=== PATIENT | female | born 1955 | race Caucasian/White ===

== ENCOUNTER 2016-10-07 11:35 | Emergency (ER) | payer OTHER ==
--- NOTE | 2016-10-07 11:47 | UC ---
Ear Complaint HPI - HPI Summary HPI Summary: left ear pain for 6 weeks--seen pcp who rx doxycycline but said she could not see her ear drum----pain radiating in to side of neck no fevers - History of Current Complaint Chief Complaint: UCEar Stated Complaint: EAR PAIN Time Seen by Provider: 10/07/16 11:37 Hx Obtained From: Patient ?: No Onset/Duration: Gradual Onset, Lasting Weeks - 6, Worse Since - past 3 days Severity Initially: Moderate Severity Currently: Moderate Pain Intensity: 6 Pain Scale Used: 0-10 Numeric Aggravating Factors: Nothing Alleviating Factors: Nothing Associated Signs/Symptoms: Positive: Hearing Loss - Allergies/Home Medications Allergies/Adverse Reactions: Allergies Allergy/AdvReac Type Severity Reaction Status Date / Time Morphine Allergy Nausea And Verified 07/01/16 15:20 Vomiting Prednisone Allergy Swelling Verified 07/01/16 15:20 Of Face,Lips,& Throat Sulfa Drugs Allergy See Comment Verified 07/01/16 15:20 PMH/Surg Hx/FS Hx/Imm Hx Previously Healthy: No - PVC Endocrine History Of: Reports: Thyroid Disease - 1977 CANCER OF THYROID, SURGERY , NOW ON SUPPLEMENT, Dyslipidemia Cardiovascular History Of: Denies: Cardiac Disorders Respiratory History Of: Reports: Bronchitis Denies: COPD, Asthma GI/ History Of: Reports: Gastroesophageal Reflux Psychological History Of: Denies: Anxiety, Depression Cancer History Of: Reports: Breast Cancer - Surgical History Surgical History: Yes Surgery Procedure, Year, and Place: 1959 [facility]. 1977 [facility]ROIDECTOMY [facility]. 1982 BILATERAL TUBAL LIGATION [facility]. 1994 LEFT BREAST LUMPECTOMY ([facility]ANCER) [facility]. LEFT HAND [facility]. 1999s GALLBLADDER [facility]. 2005 & 2009 RT HAND [facility]. 2000s RT FOOT [facility]. [place] [facility] [place] - Family History Known Family History: Positive: Hypertension - Social History Occupation: Retired Lives: With Family Alcohol Use: None Substance Use Type: None Smoking Status (MU): Current Every Day Smoker Type: Cigarettes Amount Used/How Often: <1/2 PPD Have You Smoked in the Last Year: Yes Cessation Counseling: Counseled 3+Min - 10 Min Review of Systems Constitutional: Negative Skin: Negative Eyes: Negative ENT: Sore Throat, Ear Ache Respiratory: Negative Cardiovascular: Negative Gastrointestinal: Negative Genitourinary: Negative Motor: Negative Neurovascular: Negative Musculoskeletal: Negative Neurological: Negative Psychological: Negative All Other Systems Reviewed And Are Negative: Yes Physical Exam Triage Information Reviewed: Yes Appearance: Well-Appearing, No Pain Distress, Well-Nourished Vital Signs Reviewed: Yes Eye Exam: Normal Eyes: Positive: Conjunctiva Clear ENT Exam: Other ENT: Positive: Normal ENT inspection, Pharynx normal, TMs normal - left ear cerumen impaction-flushed her after flush ear wnl, Trismus, Muffled/hoarse voice. Negative: Nasal congestion, Nasal drainage, Tonsillar swelling, Tonsillar exudate Neck exam: Normal Neck: Positive: Supple, Nontender, No Lymphadenopathy Respiratory Exam: Normal Respiratory: Positive: Chest non-tender, Lungs clear, Normal breath sounds, No respiratory distress, No accessory muscle use, Respiratory distress Cardiovascular Exam: Normal Cardiovascular: Positive: RRR, No Murmur, Pulses Normal, Brisk Capillary Refill Musculoskeletal Exam: Normal Musculoskeletal: Positive: Strength Intact, ROM Intact, No Edema Neurological Exam: Normal Neurological: Positive: Alert Psychological Exam: Normal Skin Exam: Normal Ear Complaint Course/Dx - Course Course Of Treatment: COricidin HBP for sinus congestion, flonase, augmentin if no improvement in 5-7 days, follow with pcp - Differential Dx/Diagnosis Differential Diagnosis/HQI/PQRI: Cerumen Impaction, Otitis Media, Pharyngitis, URI Provider Diagnoses: eustation tube dysfunction, cerumen impaction, nicotine dependant Discharge - Discharge Plan Condition: Stable Disposition: HOME Prescriptions: Amoxicillin/Clavulanate TAB* [Augmentin TAB 875*] 875 mg PO BID #20 tab Fluticasone NASAL SPRAY 50MCG* [Flonase NASAL SPRAY 50MCG*] 2 spray BOTH NARES DAILY #1 btl Patient Education Materials: How to Stop Smoking (ED), Sinusitis (ED), Cerumen Impaction (ED), Cigarette Smoking and Your Health (GEN), Eustachian Tube Dysfunction (GEN), How to Use Nasal [place] (ED) Referrals: Sharona Andrew MD [Primary Care Provider] - If Needed Additional Instructions: TRIPLE GOOD LUCK WITH QUITTING SMOKING YOU GOT THIS!!!!!!:) Coriciden HBP as a decongestant instead of Sudafed to help prevent heart racing and increase blood pressure
[2016-10-07 11:48] VITALS: BP 135/71
== END 2016-10-07 12:28 | disposition home or self-care (01) ==
LOC: UCEAST 11:35
DX: H69.92 Unspecified Eustachian tube disorder, left ear (principal); H61.22 Impacted cerumen, left ear; F17.210 Nicotine dependence, cigarettes, uncomplicated; K21.9 Gastro-esophageal reflux disease without esophagitis; Z88.2 Allergy status to sulfonamides; Z88.5 Allergy status to narcotic agent; Z88.8 Allergy status to other drugs, medicaments and biological substances
CPT/HCPCS: 99213; G0463

== ENCOUNTER 2016-10-29 09:17 | Emergency (ER) | payer OTHER ==
[2016-10-29 10:39] VITALS: BP 125/55
--- NOTE | 2016-10-29 11:44 | UC ---
Ear Complaint HPI - HPI Summary HPI Summary: return of left ear pain hurts worse when she swallows, coughs, no fevers - History of Current Complaint Chief Complaint: UCEar Stated Complaint: EAR PAIN Time Seen by Provider: 10/29/16 11:02 Hx Obtained From: Patient ?: No Onset/Duration: Gradual Onset, Lasting Weeks - 5, Worse Since - returned in the past 4 days Severity Initially: Moderate Severity Currently: Mild Pain Intensity: 5 Pain Scale Used: 0-10 Numeric Aggravating Factors: Nothing Alleviating Factors: Other (Noted In Comments) - ibuprofen 800mg - Allergies/Home Medications Allergies/Adverse Reactions: Allergies Allergy/AdvReac Type Severity Reaction Status Date / Time Morphine Allergy Nausea And Verified 07/01/16 15:20 Vomiting Prednisone Allergy Swelling Verified 07/01/16 15:20 Of Face,Lips,& Throat Sulfa Drugs Allergy See Comment Verified 07/01/16 15:20 Home Medications: Home Medications Ibuprofen TAB* [Motrin TAB* 800 MG] 800 mg PO Q6H 10/29/16 [History Confirmed ] PMH/Surg Hx/FS Hx/Imm Hx Previously Healthy: No Endocrine History Of: Reports: Thyroid Disease - 1977 CANCER OF THYROID, SURGERY , NOW ON SUPPLEMENT, Dyslipidemia Cardiovascular History Of: Denies: Cardiac Disorders Respiratory History Of: Reports: Bronchitis Denies: COPD, Asthma GI/ History Of: Reports: Gastroesophageal Reflux Psychological History Of: Denies: Anxiety, Depression Cancer History Of: Reports: Breast Cancer - Surgical History Surgical History: Yes Surgery Procedure, Year, and Place: 1959 [facility]. 1977 [facility]OMY [facility]. 1982 BILATERAL TUBAL LIGATION [facility]. 1994 LEFT BREAST L[facility]OMY ([facility]ANC[facility]) [facility]. LEFT [facility]. 1999s [facility]. 2006 & 2009 RT HAND [facility]. 2000s RT FOOT [facility]. 2010 CARDIAC CATH [facility] [place] - Family History Known Family History: Positive: Hypertension - Social History Occupation: Retired Lives: With Family Alcohol Use: None Substance Use Type: None Smoking Status (MU): Current Every Day Smoker Type: Cigarettes Amount Used/How Often: <1/2 PPD Have You Smoked in the Last Year: Yes Cessation Counseling: Patient Advised to Stop Review of Systems Constitutional: Negative Skin: Negative Eyes: Negative ENT: Sore Throat - with cough and swallow, Ear Ache - left Respiratory: Negative Cardiovascular: Negative Gastrointestinal: Negative Genitourinary: Negative Motor: Negative Neurovascular: Negative Musculoskeletal: Negative Neurological: Negative Psychological: Negative All Other Systems Reviewed And Are Negative: Yes Physical Exam Triage Information Reviewed: Yes Appearance: Well-Appearing, No Pain Distress, Well-Nourished Vital Signs: Initial Vital Signs Temp 97.8 F 10/29/16 10:34 Pulse 62 10/29/16 10:34 Resp 18 10/29/16 10:34 BP 125/55 10/29/16 10:34 Pulse Ox 100 10/29/16 10:34 Vital Signs Reviewed: Yes Eye Exam: Normal Eyes: Positive: Conjunctiva Clear ENT Exam: Normal ENT: Positive: Normal ENT inspection, Hearing grossly normal, Pharynx normal, Nasal drainage, TMs normal. Negative: Nasal congestion, Tonsillar swelling, Tonsillar exudate, Trismus, Muffled/hoarse voice Dental Exam: Normal Neck exam: Normal Neck: Positive: Supple, Nontender, No Lymphadenopathy Respiratory Exam: Normal Respiratory: Positive: Chest non-tender, Lungs clear, Normal breath sounds, No respiratory distress, No accessory muscle use Cardiovascular Exam: Normal Cardiovascular: Positive: RRR, No Murmur, Pulses Normal, Brisk Capillary Refill Musculoskeletal Exam: Normal Musculoskeletal: Positive: Strength Intact, ROM Intact, No Edema Neurological Exam: Normal Neurological: Positive: Alert, Muscle Tone Normal Psychological Exam: Normal Skin Exam: Normal Ear Complaint Course/Dx - Course Course Of Treatment: coricidin HBP, Flonase, ibuprofen for pain Follow on Sunday 11/05 at [address] Bruno - Differential Dx/Diagnosis Differential Diagnosis/HQI/PQRI: Cerumen Impaction, Otitis Externa, Otitis Media , URI Provider Diagnoses: URI, Eustation tube dysfunction Discharge - Discharge Plan Condition: Stable Disposition: HOME Patient Education Materials: Serous Otitis Media (ED), Eustachian Tube Dysfunction (GEN) Referrals: Winston Simpson MD [Medical Doctor] - 11/05/16 10:00 am Sharona Andrew MD [Primary Care Provider] - Additional Instructions: Continue Flonase and Coricidin HBP
== END 2016-10-29 11:43 | disposition home or self-care (01) ==
LOC: UCEAST 09:17
DX: J06.9 Acute upper respiratory infection, unspecified (principal); H69.92 Unspecified Eustachian tube disorder, left ear; Z88.5 Allergy status to narcotic agent; Z88.2 Allergy status to sulfonamides; Z88.8 Allergy status to other drugs, medicaments and biological substances; F17.210 Nicotine dependence, cigarettes, uncomplicated
CPT/HCPCS: 99211; G0463

== ENCOUNTER 2019-03-17 13:58 | Emergency (ER) | payer OTHER ==
--- NOTE | 2019-03-17 14:01 | UC ---
Complaint Female HPI - HPI Summary HPI Summary: 63 yo female presents with urinary burning, bladder pressure, and scant hematuria since last night. She tells me that she gets a UTI about once a year and this feels the same. She denies fever, chills, abdominal pain, n/v, flank pain. - History Of Current Complaint Stated Complaint: URINE ISSUES Time Seen by Provider: 03/17/19 14:01 Hx Obtained From: Patient Onset/Duration: Sudden Onset Severity Initially: Mild Severity Currently: Mild Pain Intensity: 3 Pain Scale Used: 0-10 Numeric - Allergies/Home Medications Allergies/Adverse Reactions: Allergies Allergy/AdvReac Type Severity Reaction Status Date / Time morphine Allergy Nausea And Verified 03/17/19 14:11 Vomiting prednisone Allergy Swelling Verified 03/17/19 14:11 Of Face,Lips,& Throat Sulfa (Sulfonamide Allergy See Comment Verified 03/17/19 14:11 Antibiotics) Home Medications: Home Medications Metoprolol Tartrate TAB* [Lopressor TAB*] 75 mg PO DAILY 03/17/19 [History Confirmed 03/17/19] Rosuvastatin Calcium [Crestor] 20 mg PO DAILY 03/17/19 [History Confirmed ] PMH/Surg Hx/FS Hx/Imm Hx - Additional Past Medical History Additional PMH: BRCA Endocrine History: Hypothyroidism, Dyslipidemia Cardiovascular History: Hypertension GI/ History: Gastroesophageal Reflux - Surgical History Surgical History: Yes Surgery Procedure, Year, and Place: 1959 [facility]. 1977 [facility]IDECTOMY [facility]. 1982 BILATERAL TUBAL LIGATION [facility]. 1994 LEFT BREAST LUM[facility]OMY ([facility]ANC[facility]) [facility]. LEFT HAND [facility]. 2006 RIGHT FOOT PLANTAR FASCIITIS SX. 2000s GALLBLADDER [facility]. 2005 & 2010 RT HAND [facility]. 2000s RT FOOT [facility]. 2010 CARDIAC CATH [facility] [place] - Family History Known Family History: Positive: Hypertension - Social History Lives: With Family Alcohol Use: None Substance Use Type: None Smoking Status (MU): Current Every Day Smoker Type: Cigarettes Amount Used/How Often: <1/2 PPD Have You Smoked in the Last Year: Yes Review of Systems All Other Systems Reviewed And Are Negative: Yes Constitutional: Positive: Negative Skin: Positive: Negative Respiratory: Positive: Negative Cardiovascular: Positive: Negative Genitourinary: Positive: Hematuria, Frequency, Urgency Neurological: Positive: Negative Psychological: Positive: Negative Physical Exam - Summary Physical Exam Summary: GENERAL: NAD. WDWN. No pain distress. SKIN: No rashes, sores, lesions, or open wounds. NECK: Supple. Nontender. No lymphadenopathy. CHEST: CTAB. No r/r/w. No accessory muscle use. Breathing comfortably and in no distress. CV: RRR. Without m/r/g. Pulses intact. Cap refill <2seconds ABDOMEN: Soft. NTTP. No distention or guarding. No CVA tenderness. Bowel sounds present NEURO: Alert. PSYCH: Age appropriate behavior. Triage Information Reviewed: Yes Vital Signs: Vital Signs: Temp Pulse Resp BP Pulse Ox 98.5 F 63 16 146/66 97 03/17/19 14:04 03/17/19 14:04 03/17/19 14:04 03/17/19 14:04 03/17/19 14:04 Complaint Female Dx - Course Course Of Treatment: UA with trace blood and trace leuks. Will treat with Keflex and send her urine for culture. - Differential Dx/Diagnosis Provider Diagnosis: UTI (urinary tract infection) Discharge - Sign-Out/Discharge Documenting (check all that apply): Patient Departure All imaging exams completed and their final reports reviewed: No Studies - Discharge Plan Condition: Stable Disposition: HOME Prescriptions: Cephalexin CAP* [Keflex CAP*] 500 mg PO BID #10 cap Patient Education Materials: Urinary Tract Infection in Women (DC) Referrals: Sharnoa Andrew MD [Primary Care Provider] - Additional Instructions: If you develop a fever, shortness of breath, chest pain, new or worsening symptoms - please call your PCP or go to the ED immediately. Your blood pressure was high at todays visit. Please see your primary provider within 4 weeks for recheck and re-evaluation. - Billing Disposition and Condition Condition: STABLE Disposition: Home
[2019-03-17 14:09] VITALS: BP 146/66
== END 2019-03-17 14:42 | disposition home or self-care (01) ==
LOC: UCEAST 13:58
DX: N39.0 Urinary tract infection, site not specified (principal); E03.9 Hypothyroidism, unspecified; E78.5 Hyperlipidemia, unspecified; I10 Essential (primary) hypertension; K21.9 Gastro-esophageal reflux disease without esophagitis; F17.210 Nicotine dependence, cigarettes, uncomplicated; Z88.5 Allergy status to narcotic agent; Z88.2 Allergy status to sulfonamides
CPT/HCPCS: 81003; 87086; 99212; G0463

== ENCOUNTER 2019-10-04 13:48 | Emergency (ER) | payer OTHER ==
--- OUTSIDE RECORDS SUMMARY | 2019-10-04 14:06 | XMS REPORT | Continuity of Care Document ---
:1955 External Reference #:[id number] Author Name MANNY West (transmitted by agent of provider Lory Mathias) Address [address] [facility] [place] [address] Care Team Providers Name Role Phone Sharona Andrew M.D. 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 Problems Active Problems Provider Date Varicose veins of lower extremity Chadd Darden Onset: 11/13/2018 Body mass index 25-29 - overweight Chadd Darden Onset: 11/13/2018 Social History Type Date Description Comments Sex Unknown ETOH Use Denies alcohol use Tobacco Use Start: Unknown Heavy tobacco smoker (more than 10 cigarettes/day) Recreational Drug Use Denies Drug Use Smoking Status Reviewed: 12/30/18 Heavy tobacco smoker (more than 10 cigarettes/day) Allergies, Adverse Reactions, Alerts Active Allergies Reaction Severity Comments Date Prednisone Flushing 11/13/2018 Sulfa Antibiotics 11/13/2018 Morphine vomiting 11/13/2018 Medications Active Medications SIG Qnty Indications Ordering Provider Date Cephalexin take one capsule 15caps Nichelle Terrazas, 02/27/2019 500mg three times daily M.D. Capsules Compression wear as directed 1Pair Chadd Darden 01/08/2019 Stockings Wear Daily For 6 Months 20-30MMHG Thigh High Misc Prilosec by mouth every Unknown 10mg day Capsules Metoprolol Succinate Unknown ER 50mg Tablets ER 24HR Synthroid po qd Unknown 125mcg Tablets Crestor 20 mg po qd Unknown 5mg Tablets Coq-10 po qd Unknown 150mg Capsules Aspirin 1 by mouth every Unknown 81mg Tablets day DR History Medications Gabapentin take 1 tablet by 1tabs I83.892 Chadd Darden 03/19/2019 - 600mg mouth 1 hour 03/19/2019 Tablets prior to your procedure arrival time Immunizations CPT Code Status Date Vaccine Lot # [id number] Given 08/04/2019 Influenza Vaccine [id number] Given 06/07/2018 Pneumococcal Vaccine 46479 Given 06/07/2018 Influenza Vaccine [id number] Vital Signs Date Vital Result Comment 09/08/2019 2:03pm Height 62 inches 5'2" Weight 150.00 lb BP Systolic 120 mmHg BP Diastolic 54 mmHg BMI (Body Mass Index) 27.4 kg/m2 Heart Rate 69 /min 08/20/2019 2:36pm Height 62 inches 5'2" Weight 150.00 lb BP Systolic 128 mmHg BP Diastolic 68 mmHg BMI (Body Mass Index) 27.4 kg/m2 Heart Rate 66 /min Respiratory Rate 18 /min Results Description No Information Available Procedures Date Code Description Status 09/08/2019 87154 Injection Sclerosing Solution Multiple Veins Same Leg Completed 08/20/2019 30870 Injection Sclerosing Solution Multiple Veins Same Leg Completed 08/04/2019 93217 Injection Sclerosing Solution Multiple Veins Same Leg Completed 07/21/2019 88773 Injection Sclerosing Solution Multiple Veins Same Leg Completed 07/02/2019 77649 Duplex Scan Extremity Veins, Unilateral Or Limited Study Completed 06/23/2019 15446 Injection Sclerosing Solution Multiple Veins Same Leg Completed 06/09/2019 85848 Duplex Scan Extremity Veins, Unilateral Or Limited Study Completed 06/01/2019 45318 Therapeutic, Prophylactic Or Diagnostic Injection Subq/Im Completed 06/01/2019 07388 Endovenus Therapy Radiofreq Completed 03/19/2019 05080 Duplex Scan Extremity Veins Complete Bilateral Completed Medical Devices Description No Information Available Encounters Type Date Location Provider Dx Diagnosis Office Visit 06/09/2019 [facility], I83.891 Varicose veins of r 2:00p PA low extrem with other complications Z68.28 Body mass index (BMI) 28.0-28.9, adult Office Visit 03/19/2019 2:45p [facility], I83.892 Varicose veins of l Chadd low extrem with other complications I83.891 Varicose veins of r low extrem with other complications Z68.28 Body mass index (BMI) 28.0-28.9, adult Assessments Date Code Description Provider 09/08/2019 I83.892 Varicose veins of left lower extremity with MANNY West other complications 09/08/2019 Z68.27 Body mass index (BMI) 27.0-27.9, adult MANNY West 08/20/2019 I83.891 Varicose veins of right lower extremity with MANNY West other complicat 08/20/2019 Z68.27 Body mass index (BMI) 27.0-27.9, adult MANNY West 08/04/2019 I83.892 Varicose veins of left lower extremity with MANNY West other complications 08/04/2019 Z68.28 Body mass index (BMI) 28.0-28.9, adult MANNY West 07/21/2019 I83.891 Varicose veins of right lower extremity with MANNY West other complicat 07/21/2019 Z68.28 Body mass index (BMI) 28.0-28.9, adult MANNY West 07/02/2019 I83.891 Varicose veins of right lower extremity with MANNY West other complicat 07/02/2019 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 MANNY West 07/02/2019 Z68.28 Body mass index (BMI) 28.0-28.9, adult MANNY West 06/23/2019 I83.892 Varicose veins of left lower extremity with MANNY West other complicati 06/23/2019 Z68.28 Body mass index (BMI) 28.0-28.9, adult MANNY West 06/09/2019 I83.891 Varicose veins of right lower extremity with MANNY West other complicat 06/09/2019 Z68.28 Body mass index (BMI) 28.0-28.9, adult MANNY West 06/01/2019 I83.891 Varicose veins of right lower extremity with Chadd Darden other complicat 03/19/2019 I83.892 Varicose veins of left lower extremity with Chadd Darden other complicati 03/19/2019 I83.891 Varicose veins of right lower extremity with Chadd Darden other complicat 03/19/2019 Z68.28 Body mass index (BMI) 28.0-28.9, adult Chadd Darden Plan of Treatment Future Appointment(s):12/17/2019 2:30 pm - [facility] at [facility] Zxzbgq8111/19/2019 2:30 pm - [facility] at [facility] Aebnxu1610/22/2019 2: 30 pm - [facility] at Vein Gxezou1609/22/2019 2:30 pm - [facility] Functional Status Description No Information Available Mental Status Description No Information Available Referrals Refer to Reason for Referral Status Appt Date Chadd Darden M.D. RIGHT LEG SURGERY Created [address] [facility] [place] [address] [place] [address] [phone]
--- OUTSIDE RECORDS SUMMARY | 2019-10-04 14:06 | XMS REPORT | Continuity of Care Document ---
:1955 External Reference #:[id number] Author Name MANNY West (transmitted by agent of provider Marita Philip) Address [address] [facility] [place] [address] Care Team Providers Name Role Phone Sharona Andrew M.D. 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 Provider Date Varicose veins [...] CPT Code Status Date Vaccine Lot # [id number] Given 08/04/2019 Influenza Vaccine [id number] 90842 Given 06/07/2018 Pneumococcal Vaccine 90446 Given 06/07/2018 Influenza Vaccine [id number] Vital Signs Date Vital Result Comment 08/20/2019 2:36pm Height 62 inches 5'2" Weight 150.00 lb BP Systolic 128 mmHg BP Diastolic 68 mmHg BMI (Body Mass Index) 27.4 kg/m2 Heart Rate 66 /min Respiratory Rate 18 /min 08/04/2019 2:18pm Height 62 inches 5'2" Weight 156.00 lb BP Systolic 121 mmHg BP Diastolic 60 mmHg BMI (Body Mass Index) 28.5 kg/m2 Heart Rate 67 /min Respiratory Rate 18 /min Results Description No Information Available Procedures Date Code Description Status 08/20/2019 99193 Injection Sclerosing Solution Multiple Veins Same Leg Completed 08/04/2019 61822 Injection Sclerosing Solution Multiple Veins Same Leg Completed 08/04/2019 94177 Inject Tendon/Ligament/Cyst Completed 07/21/2019 82097 Injection Sclerosing Solution Multiple Veins Same Leg Completed 07/02/2019 60710 Duplex Scan Extremity Veins, Unilateral Or Limited Study Completed 06/23/2019 04984 Injection Sclerosing Solution Multiple Veins Same Leg Completed 06/09/2019 23423 Duplex Scan Extremity Veins, Unilateral Or Limited Study Completed 06/01/2019 09903 Therapeutic, Prophylactic Or Diagnostic Injection Subq/Im Completed 06/01/2019 77825 Endovenus Therapy Radiofreq Completed 03/19/2019 15980 Duplex Scan Extremity Veins Complete Bilateral Completed 02/27/2019 41565 Duplex Scan Extremity Veins, Unilateral Or Limited Study Completed Medical Devices Description No Information Available Encounters Type Date Location Provider Dx Diagnosis Office Visit 06/09/2019 [facility] Lopez I83.891 Varicose veins of r 2:00p PA low extrem with other complications Z68.28 Body mass index (BMI) 28.0-28.9, adult Office Visit 03/19/2019 2:45p [facility] I83.892 Varicose veins of l Chadd low extrem with other complications I83.891 Varicose veins of r low extrem with other complications Z68.28 Body mass index (BMI) 28.0-28.9, adult Assessments Date Code Description Provider 08/20/2019 I83.891 Varicose veins of right lower [...] MANNY West other complicat 07/02/2019 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 MANNY West [...] Varicose veins of right lower extremity with Darden, Chadd other complicat 03/19/2019 I83.892 Varicose veins of left lower extremity with Darden, Chadd other complicati 03/19/2019 I83.891 Varicose veins of right lower extremity with Darden, Chadd other complicat 03/19/2019 Z68.28 Body mass index (BMI) 28.0-28.9, adult Chadd Darden 03/03/2019 I83.892 Varicose veins of left lower extremity with Beverley CallejasSOHAIL other complicati 03/03/2019 Z68.28 Body mass index (BMI) 28.0-28.9, adult Beverley Júnior, SOHAIL 02/27/2019 I83.892 Varicose veins of left lower extremity with Nichelle Terrazas M.D. other complicati 02/27/2019 Z68.28 Body mass index (BMI) 28.0-28.9, adult Nichelle Terrazas M.D. Plan of Treatment Future Appointment(s):09/08/2019 2:00 pm - [facility] Functional Status Description No Information Available Mental Status Description No Information Available Referrals Refer to Dr Reason for Referral Status Appt Date Chadd Darden M.D. RIGHT LEG SURGERY Created [address] [place] [address] [place] [address] [phone]
--- OUTSIDE RECORDS SUMMARY | 2019-10-04 14:06 | XMS REPORT | Continuity of Care Document ---
:1955 External Reference #:[id number] Author Name MANNY West (transmitted by agent of provider Norma Mason) Address [address] [facility] [place] [address] Care Team Providers Name Role Phone Sharona Andrew M.D. 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 Problems Active Problems Provider Date Varicose veins [...] Medications SIG Qnty Indications Ordering Provider Date Compression Stockings wear as directed 1Pair Chadd Darden 01/08/2019 Wear Daily For 6 Months 20-30MMHG Thigh High Misc Prilosec by mouth every Unknown 10mg Capsules day Metoprolol Succinate Unknown ER 50mg Tablets ER 24HR Synthroid po qd Unknown 125mcg Tablets Crestor 20 mg po qd Unknown 5mg Tablets Coq-10 po qd Unknown 150mg Capsules Aspirin 1 by mouth every Unknown 81mg Tablets DR day Immunizations CPT Code Status Date Vaccine Lot # [id number] Given 08/04/2019 Influenza Vaccine [id number] Given 06/07/2018 Pneumococcal Vaccine 09260 Given 06/07/2018 Influenza Vaccine [id number] Vital Signs Date Vital Result Comment 09/22/2019 2:43pm Height 62 inches 5'2" Weight 150.00 lb BP Systolic 120 mmHg BP Diastolic 61 mmHg BMI (Body Mass Index) 27.4 kg/m2 Heart Rate 71 /min Respiratory Rate 18 /min 09/08/2019 2:03pm Height 62 inches 5'2" Weight 150.00 lb BP Systolic 120 mmHg BP Diastolic 54 mmHg BMI (Body Mass Index) 27.4 kg/m2 Heart Rate 69 /min Results Description No Information Available Procedures Date Code Description Status 09/08/2019 17058 Injection Sclerosing Solution Multiple Veins Same Leg Completed 08/20/2019 43763 Injection Sclerosing Solution Multiple Veins Same Leg Completed 08/04/2019 57220 Injection Sclerosing Solution Multiple Veins Same Leg Completed 07/21/2019 37717 Injection Sclerosing Solution Multiple Veins Same Leg Completed 07/02/2019 28223 Duplex Scan Extremity Veins, Unilateral Or Limited Study Completed 06/23/2019 85515 Injection Sclerosing Solution Multiple Veins Same Leg Completed 06/09/2019 40387 Duplex Scan Extremity Veins, Unilateral Or Limited Study Completed 06/01/2019 84759 Therapeutic, Prophylactic Or Diagnostic Injection Subq/Im Completed 06/01/2019 02959 Endovenus Therapy Radiofreq Completed Medical Devices Description No Information Available Encounters Type Date Location Provider Dx Diagnosis Office Visit 06/09/2019 [facility], I83.891 Varicose veins of r 2:00p PA low extrem with other complications Z68.28 Body mass index (BMI) 28.0-28.9, adult Assessments Date Code Description Provider 09/22/2019 Z68.27 Body mass index (BMI) 27.0-27.9, adult MANNY West 09/08/2019 I83.892 Varicose veins of left lower [...] with MANNY West other complicat 07/02/2019 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 RIGHT LEG SURGERY Created [address] [facility] [place] [address] [place] [address] [phone]
--- OUTSIDE RECORDS SUMMARY | 2019-10-04 14:06 | XMS REPORT | Continuity of Care Document ---
:1955 External Reference #:[id number] Author Name MANNY West Address [address] [facility] [place] [address] Care Team Providers Name Role Phone Sharona Andrew M.D. 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 Problems Provider Date Varicose veins [...] by mouth every Unknown 10mg day Capsules DR Metoprolol Succinate Unknown ER 50mg Tablets ER [...] CPT Code Status Date Vaccine Lot # [id number] Given 08/04/2019 Influenza Vaccine [id number] Given 06/07/2018 Pneumococcal Vaccine 42785 Given 06/07/2018 Influenza Vaccine [id number] Vital Signs Date Vital Result Comment 09/08/2019 [...] Available Procedures Date Code Description Status 09/08/2019 13706 Injection Sclerosing Solution Multiple Veins Same Leg Completed 08/20/2019 94983 Injection Sclerosing Solution Multiple Veins Same Leg Completed 08/04/2019 99551 Injection Sclerosing Solution Multiple Veins Same Leg Completed 07/21/2019 95403 Injection Sclerosing Solution Multiple Veins Same Leg Completed 07/02/2019 00725 Duplex Scan Extremity Veins, Unilateral Or Limited Study Completed 06/23/2019 68031 Injection Sclerosing Solution Multiple Veins Same Leg Completed 06/09/2019 78069 Duplex Scan Extremity Veins, Unilateral Or Limited Study Completed 06/01/2019 35951 Therapeutic, Prophylactic Or Diagnostic Injection Subq/Im Completed 06/01/2019 06781 Endovenus Therapy Radiofreq Completed 03/19/2019 40532 Duplex Scan Extremity Veins Complete Bilateral Completed [...] with MANNY West other complicat 07/02/2019 Z79.82 prison (current) use of aspirin MANNY West 07/02/2019 [...] adult Chadd Darden Plan of Treatment Future Appointment(s):12/03/2019 2:00 pm - MANNY West at Breast Qpwqfz8511/05/2019 2:00 pm - MANNY West at Breast Hazbqf3412/17/2019 2: 30 pm - MANNY West at Breast Frgnrd0511/19/2019 2:30 pm - MANNY West at Breast Miysrr1910/22/2019 2:30 pm - MANNY West at Vein Ddzusr3009/22/2019 2:30 pm - MANNY [facility] at [facility] Center Functional Status Description No Information Available Mental Status Description No Information Available Referrals Refer to Dr Reason for Referral Status Appt Date Chadd Darden M.D. RIGHT LEG SURGERY Created [address] [facility] [place] [address] [place] [address] [phone]
[2019-10-04 14:18] VITALS: BP 141/56
--- NOTE | 2019-10-04 14:45 | UC ---
Throat Pain/Nasal Esteban HPI - HPI Summary HPI Summary: 2 days of sinus congestion, [place]. nothing makes it better/worse. denies fever, fatigue, or muscle aches. able to drink fluids normally. - History of Current Complaint Chief Complaint: UCGeneralIllness Stated Complaint: SORE THROAT Time Seen by Provider: 10/04/19 14:10 Hx Obtained From: Patient Pain Intensity: 6 Pain Scale Used: 0-10 Numeric - Allergies/Home Medications Allergies/Adverse Reactions: Allergies Allergy/AdvReac Type Severity Reaction Status Date / Time morphine Allergy Nausea And Verified 10/04/19 14:18 Vomiting prednisone Allergy Swelling Verified 10/04/19 14:18 Of Face,Lips,& Throat Sulfa (Sulfonamide Allergy See Comment Verified 10/04/19 14:18 Antibiotics) PMH/Surg Hx/FS Hx/Imm Hx Previously Healthy: Yes Endocrine History: Thyroid Disease Cardiovascular History: Hypertension - Surgical History Surgical History: Yes Surgery Procedure, Year, and Place: 1959 APPENDECTOMY [facility]. 1977 THROIDECTOMY [facility]. 1982 BILATERAL TUBAL LIGATION [facility]. 1994 LEFT BREAST LUMPECTOMY (CANCER) [facility]. LEFT HAND [facility]. 2005 RIGHT FOOT PLANTAR FASCIITIS [facility]. 2000s GALLBLADDER [facility]. 2006 & 2010 RT HAND [facility]. 2000s RT FOOT [facility]. 2009 CARDIAC CATH [facility] - Family History Known Family History: Positive: Hypertension - Social History Alcohol Use: None Substance Use Type: None Smoking Status (MU): Current Every Day Smoker Type: Cigarettes Amount Used/How Often: <1/2 PPD Have You Smoked in the Last Year: Yes Review of Systems All Other Systems Reviewed And Are Negative: Yes Constitutional: Negative: Fever, Fatigue Skin: Negative: Rash ENT: Positive: Sore Throat, Sinus Congestion, Sinus Pain/Tenderness Respiratory: Negative: Cough Musculoskeletal: Negative: Myalgia Neurological: Negative: Headache Physical Exam Triage Information Reviewed: Yes Appearance: Well-Appearing Vital Signs: Initial Vital Signs Temp 98.2 F 10/04/19 14:14 Pulse 75 10/04/19 14:14 Resp 18 10/04/19 14:14 BP 141/56 10/04/19 14:14 Pulse Ox 98 10/04/19 14:14 Vital Signs Reviewed: Yes Eyes: Positive: Conjunctiva Clear ENT: Positive: Pharynx normal, TMs normal, Uvula midline. Negative: Sinus tenderness Neck: Positive: Supple, Nontender, No Lymphadenopathy Respiratory Exam: Normal Cardiovascular Exam: Normal Neurological: Positive: Alert Skin: Negative: Rashes Throat Pain/Nasal Course/Dx - Course Course Of Treatment: Sinus congestion, acute assoc w/ [place]. viral etiology. self limiting. vitals good. rapid strep neg. advised to icnrease fluids and rest. - Differential Dx/Diagnosis Differential Diagnosis/HQI/PQRI: Sinusitis, Tonsillitis, Other Provider Diagnosis: Viral sinusitis Discharge ED - Sign-Out/Discharge Documenting (check all that apply): Patient Departure All imaging exams completed and their final reports reviewed: No Studies - Discharge Plan Condition: Good Disposition: HOME Patient Education Materials: Pharyngitis (ED) Referrals: Sharona Andrew MD [Primary Care Provider] - Additional Instructions: No indication for antibiotics this should resolve on its own as this is viral. - Billing Disposition and Condition Condition: GOOD Disposition: Home - Attestation Statements Provider Attestation: Per institutional requirements, I have reviewed the chart, however, I was not consulted specifically or made aware of this patient by the midlevel provider. I did not personally evaluate, interact with , or disposition this patient.
== END 2019-10-04 14:57 | disposition home or self-care (01) ==
LOC: UCEAST 13:48
DX: J32.9 Chronic sinusitis, unspecified (principal); B97.89 Other viral agents as the cause of diseases classified elsewhere; I10 Essential (primary) hypertension; F17.210 Nicotine dependence, cigarettes, uncomplicated; Z88.2 Allergy status to sulfonamides; Z88.5 Allergy status to narcotic agent; Z88.8 Allergy status to other drugs, medicaments and biological substances
CPT/HCPCS: 87651; 99211; G0463

== ENCOUNTER 2020-12-22 09:30 | Observation (INO) ==
[~2020-12-22 09:30] MED LIST: Buffered Lidocaine 1% SYRIN 1 ml INTRADERM ONE; Famotidine IV 10 MG/ML 2 ml VIAL (20 mg) IV ONE; Lactated Ringers 1000 ml BAG 1,000 ML IV SCH; Midazolam 2 mg/2 ml VIAL 1 mg/ml 2 ml VIAL (2 mg) ONE; Propofol 10 MG/ML 20 ML BTL ONE
[2020-12-22] MEDS ORDERED: Clindamycin 900 MG/D5W BAG 900 MG/50 ML BAG IVPB ONE (10:07)
[2020-12-22] MEDS ORDERED: Famotidine IV 10 MG/ML 2 ml VIAL (20 mg) ONE (10:07)
[2020-12-22] MEDS ORDERED: ROPIVACAINE 5 MG/ML 30 ML BTL (0.5%) ONE ×2 (10:16→11:05)
[2020-12-22] MEDS ORDERED: Midazolam 5 mg/5 ml VIAL 1 mg/ml 5 ml VIAL (5 mg) ONE (11:05)
[2020-12-22] MEDS ORDERED: Lidocaine 2% PF 5 ML VIAL ONE (11:05)
[2020-12-22] MEDS ORDERED: fentaNYL 100 mcg/2 ml 50 MCG/ML VIAL ONE (11:05)
[2020-12-22] MEDS ORDERED: fentaNYL 100 mcg/2 ml 50 MCG/ML VIAL IV PRN (12:01)
[2020-12-22] MEDS ORDERED: Ondansetron 4 mg VIAL 2 MG/ML 2 ml VIAL IV PRN ×2 (12:01→12:46)
[2020-12-22] MEDS ORDERED: Naloxone 0.4 mg VIAL 0.4 mg/ml 1 ml VIAL IV PRN ×2 (12:01→13:37)
[2020-12-22] MEDS ORDERED: HYDROmorphone 1 MG/1 ML SYRINGE IV PRN (12:01)
[2020-12-22] MEDS ORDERED: Ondansetron 4 mg VIAL 2 MG/ML 2 ml VIAL ONE (12:28)
[2020-12-22] MEDS ORDERED: Phenylephrine 40 mcg/mL 10mL (400mcg) SYRINGE ONE (12:33)
[2020-12-22] MEDS ORDERED: Lactulose 30 ml UDC PO PRN (12:46)
[2020-12-22] MEDS ORDERED: Morphine 2 MG/ML SYRINGE IV PRN (12:46)
[2020-12-22] MEDS ORDERED: Magnesium Hydroxide LIQ 30 ML UDC PO PRN (12:46)
[2020-12-22] MEDS ORDERED: diPHENhydraMINE IV 50 MG/ML 1 ml VIAL (BENADRYL) IV PRN (12:46)
[2020-12-22] MEDS ORDERED: Ondansetron ODT 4 mg TAB 4 MG TAB PO PRN (12:46)
[2020-12-22] MEDS ORDERED: diPHENhydraMINE 25 mg TAB PO PRN (12:46)
[2020-12-22] MEDS ORDERED: Lactated Ringers 1000 ml BAG 1,000 ML IV SCH (13:00)
[2020-12-22] MEDS: Clindamycin 600 MG/D5W BAG 600 MG/50 ML BAG IV SCH (20:23)
[2020-12-22] MEDS: Magnesium Hydroxide LIQ 30 ML UDC PO SCH (20:24)
[2020-12-22] MEDS ORDERED: CMC:Rosuvastatin 20 mg TAB (NF) PO SCH (21:00)
[2020-12-23] MEDS: Clindamycin 600 MG/D5W BAG 600 MG/50 ML BAG IV SCH ×2 (03:27→12:03)
[2020-12-23 05:48] LABS: Hematocrit 36 % (35-47); Hemoglobin 12.2 g/dL (12.0-16.0); Mean Platelet Volume 7.2 fL (7.4-10.4); Platelet Count 223 10^3/uL (150-450)
[2020-12-23 06:04] LABS: BUN/Creatinine Ratio 20.2 (8-20); Calcium 8.6 mg/dL (8.6-10.3); EGFR African American 76.5 (>60); EGFR Non-African American 63.3 (>60); Potassium 4.2 mmol/L (3.5-5.0)
[2020-12-23] MEDS: Magnesium Hydroxide LIQ 30 ML UDC PO SCH (07:48)
[2020-12-23] MEDS ORDERED: Vitamin THERAPEUTIC TAB PO SCH (09:00)
[2020-12-23 12:22] VITALS: BP 109/50
== END 2020-12-23 14:00 | disposition home or self-care (01) ==
LOC: AA 09:38 → INTOOBSV 09:38 → SSU 15:29
PROVIDERS: ADMIT Orthopaedic Surgery Adult Reconstructive Orthopaedic Surgery; ATTEND Orthopaedic Surgery Adult Reconstructive Orthopaedic Surgery